=== PATIENT | male | born 1990 ===

== ENCOUNTER 2018-05-06 22:53 | Emergency (ER) | payer OTHER ==
[2018-05-06 23:05] VITALS: BP 118/72; PULSE 76; TEMP 97.5; O2SAT 97
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
[2018-05-07 00:11] VITALS: RESP 20
== END 2018-05-07 00:10 | disposition home or self-care (01) ==
LOC: C.ER 22:53
DX: S13.9XXA Sprain of joints and ligaments of unspecified parts of neck, initial encounter (principal); V49.40XA Driver injured in collision with unspecified motor vehicles in traffic accident, initial encounter; Y99.0 Civilian activity done for income or pay; M54.9 Dorsalgia, unspecified